=== PATIENT | female | born 1965 | race Caucasian/White ===

== ENCOUNTER 2019-04-29 17:44 | Emergency (ER) | payer OTHER ==
[~2019-04-29] VITALS: Ht 165.1 cm; Wt 111.1 kg
[2019-04-29 18:25] LABS: BASOPHILS % (AUTO) 0 % (0-10); EOSINOPHILS # (AUTO) 0.1 10^3/uL (0.0-0.3); EOSINOPHILS % (AUTO) 1 % (0-10); HEMATOCRIT 30 % (35-52); HEMOGLOBIN 9.2 G/DL (11.5-16.0); LYMPHOCYTES # (AUTO) 2.9 X 10^3 (1.0-4.0); LYMPHOCYTES % (AUTO) 25 % (12-44); MEAN CORPUSCULAR HEMOGLOBIN 23 PG (25-34); MEAN CORPUSCULAR HGB CONC 31 G/DL (32-36); MEAN CORPUSCULAR VOLUME 73 FL (80-99); MEAN PLATELET VOLUME 9.5 FL (7.4-10.4); MONOCYTES % (AUTO) 9 % (0-12); NEUTROPHILS # (AUTO) 7.2 X 10^3 (1.8-7.8); NEUTROPHILS % (AUTO) 64 % (42-75); PLATELET COUNT 599 10^3/uL (130-400); RED CELL DISTRIBUTION WIDTH 15.7 % (10.0-14.5); WHITE BLOOD COUNT 11.2 10^3/uL (4.3-11.0)
[2019-04-29] MEDS ORDERED: LISI-552 PO (18:30)
[2019-04-29] MEDS ORDERED: DICL100G18 TP (18:30)
--- NOTE | 2019-04-29 18:36 | ED General ---
General Chief Complaint: General Problems/Pain Stated Complaint: HEMOGLOBIN LOW Nursing Triage Note: PT PRESENTS TO ED WITH COMPLAINTS OF LOW HGB COUNT OF 8 WHEN SHE HAD LABS DRAWN AT HER DRS OFFICE. PT REPORTS SHE HAD HAD INTERMITTENT HEAVY PERIODS X 1 YEAR AND WAS DUE TO HAVE A HYSTERECTOMY BUT HER BLOOD SUGARS WERE RUNNING TOO HIGH. PT REPORTS FATIGUE, SOA, AND SOME INTERMITTENT CP. Nursing Sepsis Screen: No Definite Risk Source of Information: Patient Exam Limitations: No Limitations History of Present Illness Date Seen by Provider: Apr 29, 2019 Time Seen by Provider: 18:16 Initial Comments This 53 year old woman presents to the ER at the direction of her primary car clinic due to a hemoglobin of 8 on April 27, dyspnea on exertion, chest tightness on exertion, generalized weakness and fatigue, lightheadedness on exertion. These problems have been intermittently present for a few months. She believes using CPAP has improved them some. She has had ongoing problems with anemia due to vaginal bleeding. She was to have a hysterectomy but that was postponed due to high blood sugars. She reports having a negative endometrial biopsy. She has also recently had upper and lower endoscopy that were reportedly normal. She reports she was also recently suspected of having CREST syndrome. She has been diagnosed with obstructive sleep apnea, borderline pulmonary hypertension, and has history of esophageal stricture requiring dilatation. Her primary care provider is Louann Richter at [facility] in [place]. Dr. Goode is her spinning machine operator who cares for her pulmonary hypertension. She has another spinning machine operator, Dr. Ludwig, who she sees for sleep apnea. Dr. Eldridge is her rheum atologist. She denies any significant chest discomfort today. Allergies and Home Medications Allergies Coded Allergies: No Known Drug Allergies (Unverified , 04/29/19) Home Medications Lisinopril 20 Mg Tablet, 20 MG PO DAILY, (Reported) Patient Home Medication List Home Medication List Reviewed: Yes Review of Systems Review of Systems Constitutional: see HPI EENTM: no symptoms reported Respiratory: see HPI Cardiovascular: see HPI Gastrointestinal: no symptoms reported Genitourinary: no symptoms reported : No Musculoskeletal: see HPI Skin: no symptoms reported Psychiatric/Neurological: No Symptoms Reported Hematologic/Lymphatic: See HPI Immunological/Allergic: see HPI Past Qmaitvw-Fjcegj-Smullm Hx Past Med/Social Hx: Reviewed and Corrections made Patient Social History Alcohol Use: Denies Use Recreational Drug Use: No Smoking Status: Never a Smoker Recent Foreign Travel: No Contact w/Someone Who Travel: No Recent Infectious Disease Expo: No Recent Hopitalizations: No Seasonal Allergies Seasonal Allergies: No Past Medical History Surgeries: Yes (esophageal dilatation) Abdominal (upper and lower endoscopy), Gallbladder, Tonsillectomy Respiratory: Yes Sleep Apnea Cardiac: Yes (borderline pulmonary hypertension) Hypertension Neurological: No : No Last Menstrual Period: Apr 28, 2019 Reproductive Disorders: Yes (dysfunctional uterine bleeding) Genitourinary: No Gastrointestinal: Yes (esophageal strictures) Gastroesophageal Reflux Musculoskeletal: Yes (suspected CREST syndrome) Arthritis Endocrine: Yes Diabetes, Non-Insulin dep (diet controlled) HEENT: No Cancer: No Psychosocial: No Physical Exam Vital Signs Vital Signs - First Documented 04/29/19 17:58 Temp 99.5 Pulse 101 Resp 18 B/P (MAP) 139/86 (103) Pulse Ox 98 Capillary Refill : Less Than 3 Seconds Height, Weight, BMI Height: 5'5.00" Weight: 245lbs. oz. 111.141327hg; BMI Method:Stated General Appearance: No Apparent Distress, WD/WN, Obese HEENT: PERRL/EOMI, Normal ENT Inspection Neck: Normal Inspection Respiratory: Lungs Clear, Normal Breath Sounds, No Accessory Muscle Use, No Respiratory Distress Cardiovascular: No Edema, No Murmur, Normal Peripheral Pulses, Tachycardia (regular) Gastrointestinal: Normal Bowel Sounds, Non Tender, Soft Extremity: Normal Inspection, No Pedal Edema Neurologic/Psychiatric: Alert, Oriented x3, No Motor/Sensory Deficits, Normal Mood/Affect, condenser tester II-XII Norm as Tested Skin: Warm/Dry, Pallor Progress/Results/Core Measures Suspected Sepsis Recent Fever Within 48 Hours: No Infection Criteria Present: None New/Unexplained Altered Menta: No Sepsis Screen: No Definite Risk SIRS Temperature:99.5 Pulse: 101 Respiratory Rate: 18 Laboratory Tests 04/29/19 18:12: White Blood Count 11.2H Blood Pressure 139 /86 Mean: 103 Laboratory Tests 04/29/19 18:12: Creatinine 0.88, INR Comment 1.0, Platelet Count 599H, Total Bilirubin 0.4 Results/Orders Lab Results Laboratory Tests Test 04/29/19 18:12 04/29/19 18:44 Range/Units White Blood Count 11.2 H 4.3-11.0 10^3/uL Red Blood Count 4.08 L 4.35-5.85 10^6/uL Hemoglobin 9.2 L 11.5-16.0 G/DL Hematocrit 30 L 35-52 % Mean Corpuscular Volume 73 L 80-99 FL Mean Corpuscular Hemoglobin 23 L 25-34 PG Mean Corpuscular Hemoglobin Concent 31 L 32-36 G/DL Red Cell Distribution Width 15.7 H 10.0-14.5 % Platelet Count 599 H 130-400 10^3/uL Mean Platelet Volume 9.5 7.4-10.4 FL Neutrophils (%) (Auto) 64 42-75 % Lymphocytes (%) (Auto) 25 12-44 % Monocytes (%) (Auto) 9 0-12 % Eosinophils (%) (Auto) 1 0-10 % Basophils (%) (Auto) 0 0-10 % Neutrophils # (Auto) 7.2 1.8-7.8 X 10^3 Lymphocytes # (Auto) 2.9 1.0-4.0 X 10^3 Monocytes # (Auto) 1.0 0.0-1.0 X 10^3 Eosinophils # (Auto) 0.1 0.0-0.3 10^3/uL Basophils # (Auto) 0.0 0.0-0.1 10^3/uL Prothrombin Time 14.0 12.2-14.7 SEC INR Comment 1.0 0.8-1.4 Activated Partial Thromboplast Time 33 24-35 SEC D-Dimer 0.27 0.00-0.49 UG/ML Sodium Level 136 135-145 MMOL/L Potassium Level 3.6 3.6-5.0 MMOL/L Chloride Level 105 98-107 MMOL/L Carbon Dioxide Level 21 21-32 MMOL/L Anion Gap 10 5-14 MMOL/L Blood Urea Nitrogen 12 7-18 MG/DL Creatinine 0.88 0.60-1.30 MG/DL Estimat Glomerular Filtration Rate > 60 BUN/Creatinine Ratio 14 Glucose Level 111 H 70-105 MG/DL Calcium Level 9.5 8.5-10.1 MG/DL Corrected Calcium 9.4 8.5-10.1 MG/DL Magnesium Level 2.0 1.8-2.4 MG/DL Total Bilirubin 0.4 0.1-1.0 MG/DL Aspartate Amino Transf (AST/SGOT) 16 5-34 U/L Alanine Aminotransferase (ALT/SGPT) 17 0-55 U/L Alkaline Phosphatase 84 40-136 U/L Myoglobin 35.1 10.0-92.0 NG/ML Troponin I < 0.028 <0.028 NG/ML Total Protein 8.1 6.4-8.2 GM/DL Albumin 4.1 3.2-4.5 GM/DL Urine Color YELLOW Urine Clarity CLEAR Urine pH 5 5-9 Urine Specific [place] 1.025 H 1.016-1.022 Urine Protein NEGATIVE NEGATIVE Urine Glucose (UA) NEGATIVE NEGATIVE Urine Ketones NEGATIVE NEGATIVE Urine Nitrite NEGATIVE NEGATIVE Urine Bilirubin NEGATIVE NEGATIVE Urine Urobilinogen NORMAL NORMAL MG/DL Urine Leukocyte Esterase 1+ H NEGATIVE Urine RBC (Auto) 1+ H NEGATIVE Urine RBC 2-5 H /HPF Urine WBC 2-5 /HPF Urine Squamous Epithelial Cells 0-2 /HPF Urine Crystals NONE /LPF Urine Bacteria FEW H /HPF Urine Casts NONE /LPF Urine Mucus SMALL H /LPF Urine Culture Indicated YES My Orders Orders - LAVELLE KITCHEN MD Cbc With Automated Diff (04/29/19 18:14) Magnesium (04/29/19 18:14) Ekg Tracing (04/29/19 18:14) Cardiac Profile 1 (04/29/19 18:14) Comprehensive Metabolic Panel (04/29/19 18:14) Myoglobin Serum (04/29/19 18:14) Protime With Inr (04/29/19 18:14) Partial Thromboplastin Time (04/29/19 18:14) O2 (04/29/19 18:14) Monitor-Rhythm Ecg Trace Only (04/29/19 18:14) Ed Iv/Invasive Line Start (04/29/19 18:14) Chest Pa/Lat (2 View) (04/29/19 18:26) Ua Culture If Indicated (04/29/19 18:37) Fibrin Degradation Products (04/29/19 18:54) Urine Culture (04/29/19 18:44) Ns Iv 1000 Ml (Sodium Chloride 0.9%) (04/29/19 19:29) Medications Given in ED Current Medications Medications Dose Ordered Sig/Shabbir Route Start Time Stop Time Status Last Admin Dose Admin Sodium Chloride 1,000 ml @ 0 mls/hr Q0M ONCE IV 04/29/19 19:29 04/29/19 19:31 DC 04/29/19 19:40 0 MLS/HR Vital Signs/I&O 04/29/19 04/29/19 17:58 20:39 Temp 99.5 Pulse 101 87 Resp 18 20 B/P (MAP) 139/86 (103) 154/87 (109) Pulse Ox 98 99 Capillary Refill : Less Than 3 Seconds Blood Pressure Mean: 103 Progress Note : Time: 19:33 Progress Note Lab workup demonstrated pulmonary nodules on the chest x-ray which patient was aware of. We are sending her out with a CD of her x-rays to take to her spinning machine operator for comparison. Patient feels like she has not been drinking well enough lately. This may explain her mild tachycardia. She requests a liter of IV fluid before dismissal. Hemoglobin was 9.2 today and stable from her reported 8 from the clinic on Saturday. Patient is not having active chest pain. I advised her to seek referral to a sheet metal worker as soon as possible. She would like to do this through [employer] as a referral from her spinning machine operator. Have encouraged her to follow up with her primary care provider to review findings from today's workup. ECG Initial ECG Impression Date: Apr 29, 2019 Initial ECG Impression Time: 18:24 Initial ECG Rate: 99 Initial ECG Rhythm: S.Tach Initial ECG Impression: Normal Comment Borderline sinus tachycardia with no ST elevation or depression. No abnormal i ntervals or axis deviation. Diagnostic Imaging Diagonstic Imaging: Xray Plain Films/CT/US/NM/MRI: chest Comments Chest x-ray viewed by me and report reviewed. See report below: NAME: JAMEEL FERNÁNDEZ [facility] REC#: [id number] PT STATUS: REG ER : 1965 PHYSICIAN: LAVELLE KITCHEN MD ADMIT DATE: 04/29/19/ER Draft Date of Exam:04/29/19 CHEST PA/LAT (2 VIEW) EXAM: CHEST PA/LAT (2 VIEW) INDICATION: Chest pain. Weakness. COMPARISON: None. FINDINGS: Indeterminate subcentimeter pulmonary nodule in the right lung base laterally. Calcified granuloma in the left lung. No pleural effusion or pneumothorax. Normal heart size and central pulmonary vascularity. Cholecystectomy clips. IMPRESSION: Indeterminate subcentimeter pulmonary nodule in the right lung laterally. Comparison with prior outside imaging would be helpful for further evaluation. Alternatively, a nonemergent chest CT without contrast could be performed. Dictated on workstation # [id number] Dict: 04/29/19 1834 Trans: 04/29/19 1839 RYLAN [phone] Interpreted by: SALMA CARRASCO MD Departure Impression Primary Impression: Dyspnea on exertion Additional Impressions: Chest pain on exertion Anemia Qualified Codes: D64.9 - Anemia, unspecified Pulmonary nodules Disposition: HOME, SELF-CARE Condition: Improved Departure-Patient Inst. Decision time for Depature: 19:31 Referrals: NO,LOCAL PHYSICIAN (PCP) Primary Care Physician SONYA RICHTER (Family) Primary Care Physician Add. Discharge Instructions: Follow-up with your spinning machine operator as soon as possible. Please call their office in the morning and ask for referral to a sheet metal worker for further evaluation of your shortness of breath and discomfort on exertion. When you follow-up with your spinning machine operator, please take the CD of your chest x-ray for comparison to the priors. Drink plenty of clear liquids and avoid activities that cause significant shortness of breath or discomfort. Return to emergency room if you have worsening symptoms. Please follow-up with your primary care provider soon as possible to review labs and other findings from this ER visit. All discharge instructions reviewed with patient and/or family. Voiced understanding. Copy Copies To 1: TROY WALKER JOSHUA T MD Apr 29, 2019 18:36
--- NOTE | 2019-04-29 18:40 | Diagnostic Imaging Report ---
EXAM: CHEST PA/LAT (2 VIEW) INDICATION: Chest pain. Weakness. COMPARISON: None. FINDINGS: Indeterminate subcentimeter pulmonary nodule in the right lung base laterally. Calcified granuloma in the left lung. No pleural effusion or pneumothorax. Normal heart size and central pulmonary vascularity. Cholecystectomy clips. IMPRESSION: Indeterminate subcentimeter pulmonary nodule in the right lung laterally. Comparison with prior outside imaging would be helpful to document stability. If this is unavailable, recommend nonemergent noncontrast chest CT. Dictated by: Dictated on workstation # [id number]
[2019-04-29 18:46] LABS: ALANINE AMINOTRANSFERASE 17 U/L (0-55); ALBUMIN 4.1 GM/DL (3.2-4.5); ALKALINE PHOSPHATASE 84 U/L (40-136); BILIRUBIN,TOTAL 0.4 MG/DL (0.1-1.0); BUN/CREATININE RATIO 14; CALCIUM 9.5 MG/DL (8.5-10.1); CARBON DIOXIDE 21 MMOL/L (21-32); CHLORIDE 105 MMOL/L (98-107); CREATININE SERUM 0.88 MG/DL (0.60-1.30); GFR ESTIMATED > 60; GLUCOSE 111 MG/DL (70-105); POTASSIUM 3.6 MMOL/L (3.6-5.0); SODIUM 136 MMOL/L (135-145); TOTAL PROTEIN 8.1 GM/DL (6.4-8.2)
[2019-04-29 19:03] LABS: BILIRUBIN,URINE NEGATIVE (NEGATIVE); CLARITY,URINE CLEAR; COLOR,URINE YELLOW; GLUCOSE, URINE (UA) NEGATIVE (NEGATIVE); KETONES,URINE NEGATIVE (NEGATIVE); LEUKOCYTE ESTERASE ,URINE 1+ (NEGATIVE); NITRITE,URINE NEGATIVE (NEGATIVE); PH,URINE 5 (5-9); PROTEIN,URINE NEGATIVE (NEGATIVE); UROBILINOGEN,URINE NORMAL (NORMAL)
--- OUTSIDE RECORDS SUMMARY | 2019-04-29 19:13 | XMS REPORT ---
Author Author SONYA KRISHNA Organization [facility] Address [address] [place] [address] Care Team Providers Care Scraper Operator Name Role Phone SONYA KRISHNA Unavailable PROBLEMS Type Condition ICD9-CM Code [id number] Code Onset Dates Condition Status SNOMED Code Problem Acute non-recurrent pansinusitis J01.40 Active 7707015 Problem Elevated blood pressure reading R03.0 Active 84629667 Problem Positive JANIYA (antinuclear antibody) R76.8 Active 624012263 Problem Hypertension, essential I10 Active 25252165 Problem Hyperglycemia R73.9 Active 57528908 Problem Low hemoglobin D64.9 Active 839389792 Problem Right hip pain M25.551 Active 228238730938186 Problem Iron deficiency anemia, unspecified iron deficiency anemia type D50.9 Active 28615620 ALLERGIES No Information ENCOUNTERS Encounter Location Date Diagnosis [facility] [address] [id number] [place] [id number] May, [facility] [address] [id number], [place] [id number] May, Positive JANIYA (antinuclear antibody) R76.8 [facility] [address] [id number], [place] [id number] May, Iron deficiency anemia, unspecified iron deficiency anemia type D50.9 ; Right hip pain M25.551 and Hypertension, essential I10 [facility] [address] [id number] [place] [id number] Apr, Hematest positive stools R19.5 [facility] [address] [id number] [place] [id number] Apr, Hyperglycemia R73.9 [facility] [address] [id number][place] [id number] Apr, [facility] [id number][place] [id number] Apr, Hyperglycemia R73.[address] [id number], [place] [id number] Apr, Hyperglycemia R73.9 and Low hemoglobin D64.[address] [id number], [place] [id number] Apr, Elevated blood pressure reading R03.0 and Seasonal allergic rhinitis, unspecified trigger J30.[address] [id number], [place] [id number] March, Acute non-recurrent pansinusitis J01.40 ; Elevated blood pressure reading R03.0 and BMI 40.0-44.9, adult Z68.[address] [id number], [place] [id number] Jan, Allergic conjunctivitis of both eyes H10.13 [facility] [id number] [place] [id number] 03 Mar, 2017 Encounter for dental examination Z01.20 [facility] [id number] [place] [phone] 02 Dec, 2016 Dysuria R30.0 and Acute cystitis with hematuria N30.01 [facility] [id number] [place] [phone] Aug, Dysuria R30.0 and Acute cystitis with hematuria N30.01 IMMUNIZATIONS No Known Immunizations SOCIAL HISTORY Never Assessed REASON FOR VISIT lab [facility] PLAN OF CARE VITAL SIGNS MEDICATIONS Unknown Medications RESULTS Name Result Date Reference Range HEMOCCULT/FOBT (IN HOUSE) 2018-04-22 RESULTS POSITIVE Control POSITIVE Lot # [id number] Exp date 05/23 HEMOCCULT (IN HOUSE)-Additional* 2018-04-22 RESULTS POSITIVE Control POSITIVE Lot # [id number] Exp Date 05/23 PROCEDURES Procedure Date Ordered Result Body Site TEST FOR BLOOD, FECES April 22, 2018 INSTRUCTIONS MEDICATIONS ADMINISTERED No Known Medications MEDICAL (GENERAL) HISTORY Type Description Date Medical History Low iron Medical History Pre Diabetic Surgical History cholecystectomy Surgical History tonsillectomy and adenoidectomy Hospitalization History Sx
--- OUTSIDE RECORDS SUMMARY | 2019-04-29 19:13 | XMS REPORT ---
Author Author [facility]ISHNA [facility] Address [address] [place] [address] Care Team Providers Care Order Builder Name Role Phone SONYA KRISHNA Unavailable PROBLEMS Type Condition ICD9-CM Code [id number] Code Onset Dates Condition Status SNOMED Code Problem Acute non-recurrent pansinusitis J01.40 Active 0457906 Problem Elevated blood pressure reading R03.0 Active 74644672 Problem Positive JANIYA (antinuclear antibody) R76.8 Active 597585316 Problem Hypertension, essential I10 Active 28472305 Problem Hyperglycemia R73.9 Active 94492140 Problem Low hemoglobin D64.9 Active 524362894 Problem Right hip pain M25.551 Active 678808422194513 Problem Iron deficiency anemia, unspecified iron deficiency anemia type D50.9 Active 08992759 ALLERGIES No Information ENCOUNTERS Encounter Location Date Diagnosis [facility] [employer] [address] [id number] [place] [id number] Oct, [facility] [address] [id number], [place] [id number] May, [facility] [address] [id number], [place] [id number] May, Positive JANIYA (antinuclear antibody) R76.8 [facility] [address] [id number], [place] [id number] May, Iron deficiency anemia, unspecified iron deficiency anemia type D50.9 ; Right hip pain M25.551 and Hypertension, essential I10 [facility] [address] [id number] [place] [id number] Apr, Hematest positive stools R19.5 [facility] [id number], [place] [id number] Apr, Hyperglycemia R73.9 [facility] [id number], [place] [id number] 15 Apr, 2018 [facility] [id number], [place] [id number] Apr, Hyperglycemia R73.9 [facility] [address] [id number], [place] [id number] 11 Apr, 2018 Hyperglycemia R73.9 and Low hemoglobin D64.[address] [id number], [place] [id number] Apr, Elevated blood pressure reading R03.0 and Seasonal allergic rhinitis, unspecified trigger J30.[address] [id number], [place] [id number] March, Acute non-recurrent pansinusitis J01.40 ; Elevated blood pressure reading R03.0 and BMI 40.0-44.9, adult Z68.41 [facility] Armstrong[address] [place] [address] AV [id number], [place] [id number] Jan, Allergic conjunctivitis of both eyes H10.13 [facility] [address] [place] [id number] March, Encounter for dental examination Z01.20 [facility] [address] [place] [phone] Dec, Dysuria R30.0 and Acute cystitis with hematuria N30.01 [facility] [address] [place] [phone] Aug, Dysuria R30.0 and Acute cystitis with hematuria N30.01 IMMUNIZATIONS No Known Immunizations SOCIAL HISTORY Never Assessed REASON FOR VISIT refill lisinopril PLAN OF CARE VITAL SIGNS MEDICATIONS Medication Instructions Dosage Frequency Start Date End Date Duration Status Lisinopril 10 mg Orally Once a day 1 tablet 24h 30 Active RESULTS No Results PROCEDURES No Known procedures INSTRUCTIONS MEDICATIONS ADMINISTERED No Known Medications MEDICAL (GENERAL) HISTORY Type Description Date Medical History Low iron Medical History Pre Diabetic Medical History CREST Syndrome, limited scleroderma Surgical History cholecystectomy Surgical History tonsillectomy and adenoidectomy Hospitalization History Sx
--- OUTSIDE RECORDS SUMMARY | 2019-04-29 19:13 | XMS REPORT ---
Author Author SONYA KRISHNA [facility] Address [address] [place] [address] Care Team Providers Care Recovery Agent Name Role Phone SONYA KRISHNA Unavailable PROBLEMS Type Condition ICD9-CM Code [id number] Code Onset Dates Condition Status SNOMED Code Problem Acute non-recurrent pansinusitis J01.40 Active 6173092 Problem Elevated blood pressure reading R03.0 Active 31786629 Problem Positive JANIYA (antinuclear antibody) R76.8 Active 229107134 Problem Hypertension, essential I10 Active 40209232 Problem Hyperglycemia R73.9 Active 98207338 Problem Low hemoglobin D64.9 Active 641246074 Problem Right hip pain M25.551 Active 908255694858753 Problem Iron deficiency anemia, unspecified iron deficiency anemia type D50.9 Active 12649170 ALLERGIES No Information ENCOUNTERS Encounter Location Date Diagnosis [facility] [address] [id number] [place] [id number] May, [facility] [address] [id number], [place] [id number] May, Positive JANIYA (antinuclear antibody) R76.8 [facility] [address] [id number], [place] [id number] May, Iron deficiency anemia, unspecified iron deficiency anemia type D50.9 ; Right hip pain M25.551 and Hypertension, essential I10 [facility] [address] [id number] [place] [id number] Apr, Hematest positive stools R19.5 [facility] [address] [id number] [place] [id number] Apr, Hyperglycemia R73.9 [facility] [address] [id number], [place] [id number] Apr, [facility] [id number], [place] [id number] Apr, Hyperglycemia R73.[address] [id number], [place] [id number] Apr, Hyperglycemia R73.9 and Low hemoglobin D64.[address] [id number], [place] [id number] Apr, Elevated blood pressure reading R03.0 and Seasonal allergic rhinitis, unspecified trigger J30.[address] [id number], [place] [id number] March, Acute non-recurrent pansinusitis J01.40 ; Elevated blood pressure reading R03.0 and BMI 40.0-44.9, adult Z68.[address] [id number], [place] [id number] Jan, Allergic conjunctivitis of both eyes H10.13 [facility] [address] [place] [id number] March, Encounter for dental examination Z01.20 [facility] [id number] [place] [phone] 02 Dec, 2016 Dysuria R30.0 and Acute cystitis with hematuria N30.01 [facility] [id number] [place] [phone] Aug, Dysuria R30.0 and Acute cystitis with hematuria N30.01 IMMUNIZATIONS No Known Immunizations SOCIAL HISTORY Never Assessed REASON FOR VISIT PLAN OF CARE VITAL SIGNS MEDICATIONS Unknown Medications RESULTS No Results PROCEDURES No Known procedures INSTRUCTIONS MEDICATIONS ADMINISTERED No Known Medications MEDICAL (GENERAL) HISTORY Type Description Date Medical History Low iron Medical History Pre Diabetic Surgical History cholecystectomy Surgical History tonsillectomy and adenoidectomy Hospitalization History Sx
--- OUTSIDE RECORDS SUMMARY | 2019-04-29 19:13 | XMS REPORT ---
Author Author SONYA KRISHNA Organization [facility] Address [address] [place] [address] Care Team Providers Care Lift Operator Name Role Phone SONYA KRISHNA Unavailable PROBLEMS Type Condition ICD9-CM Code [id number] Code Onset Dates Condition Status SNOMED Code Problem Acute non-recurrent pansinusitis J01.40 Active 7142727 Problem Elevated blood pressure reading R03.0 Active 13361771 Problem Positive JANIYA (antinuclear antibody) R76.8 Active 801126301 Problem Hypertension, essential I10 Active 20129795 Problem Hyperglycemia R73.9 Active 75491047 Problem Low hemoglobin D64.9 Active 774430724 Problem Right hip pain M25.551 Active 022124483056209 Problem Iron deficiency anemia, unspecified iron deficiency anemia type D50.9 Active 91929336 ALLERGIES No Information ENCOUNTERS Encounter Location Date Diagnosis [facility] [address] [id number] [place] [id number] May, [facility] [address] [id number] [id number] May, Positive JANIYA (antinuclear antibody) R76.8 [facility] [address] [id number], [place] [id number] May, Iron deficiency anemia, unspecified iron deficiency anemia type D50.9 ; Right hip pain M25.551 and Hypertension, essential I10 [facility] [address] [id number] [place] [phone] Apr, Hematest positive stools R19.5 [facility] [address] [id number] [place] [id number] Apr, Hyperglycemia R73.9 [facility] [address] [id number], [place] [id number] Apr, [facility] [id number], [place] [id number] Apr, Hyperglycemia R73.[address] [id number], [place] [id number] Apr, Hyperglycemia R73.9 and Low hemoglobin D64.[address] [id number], [place] [id number] Apr, Elevated blood pressure reading R03.0 and Seasonal allergic rhinitis, unspecified trigger J30.[address] [id number], [place] [id number] March, Acute non-recurrent pansinusitis J01.40 ; Elevated blood pressure reading R03.0 and BMI 40.0-44.9, adult Z68.[address] [id number], [place] [id number] Jan, Allergic conjunctivitis of both eyes H10.13 [facility] [id number] [place] [id number] March, Encounter for dental examination Z01.20 [facility] [id number] [place] [address] 02 Dec, 2016 Dysuria R30.0 and Acute cystitis with hematuria N30.01 [facility] [id number] [place] [phone] Aug, Dysuria R30.0 and Acute cystitis with hematuria N30.01 IMMUNIZATIONS No Known Immunizations SOCIAL HISTORY Never Assessed REASON FOR VISIT JANIYA Titer PLAN OF CARE VITAL SIGNS MEDICATIONS Unknown Medications RESULTS No Results PROCEDURES No Known procedures INSTRUCTIONS MEDICATIONS ADMINISTERED No Known Medications MEDICAL (GENERAL) HISTORY Type Description Date Medical History Low iron Medical History Pre Diabetic Surgical History cholecystectomy Surgical History tonsillectomy and adenoidectomy Hospitalization History Sx
--- OUTSIDE RECORDS SUMMARY | 2019-04-29 19:13 | XMS REPORT ---
Author Author SONYA KRISHNA Organization [facility] Address [address] [place] [address] Care Team Providers Care Fpga Design Engineer Name Role Phone SONYA KRISHNA Unavailable PROBLEMS Type Condition ICD9-CM Code GAG18-HC Code Onset Dates Condition Status SNOMED Code Problem Acute non-recurrent pansinusitis J01.40 Active 6609610 Problem Elevated blood pressure reading R03.0 Active 66157085 Problem Positive JANIYA (antinuclear antibody) R76.8 Active 923025349 Problem Hypertension, essential I10 Active 26166301 Problem Hyperglycemia R73.9 Active 10379122 Problem Low hemoglobin D64.9 Active 590907604 Problem Right hip pain M25.551 Active 121950503985438 Problem Iron deficiency anemia, unspecified iron deficiency anemia type D50.9 Active 43791380 ALLERGIES No Information ENCOUNTERS Encounter Location Date Diagnosis [facility] [address] [id number] [place], [place] [id number] May, [facility] [address] [id number] [place] [id number] May, Positive JANIYA (antinuclear antibody) R76.8 [facility] [address] [id number] [place] [id number] May, Iron deficiency anemia, unspecified iron deficiency anemia type D50.9 ; Right hip pain M25.551 and Hypertension, essential I10 [facility] [address] [id number] [place] [id number] Apr, Hematest positive stools R19.5 [facility] [address] [id number] [place] [id number] Apr, Hyperglycemia R73.9 [facility] [address] [id number] [place] [id number] Apr, [facility] [id number] [place] [address] Apr, Hyperglycemia R73.[address] [id number] [place] [id number] Apr, Hyperglycemia R73.9 and Low hemoglobin D64.[address] [id number] [place] [id number] Apr, Elevated blood pressure reading R03.0 and Seasonal allergic rhinitis, unspecified trigger J30.[address] [id number] [place] [id number] March, Acute non-recurrent pansinusitis J01.40 ; Elevated blood pressure reading R03.0 and BMI 40.0-44.9, adult Z68.[address] [id number] [place] [id number] Jan, Allergic conjunctivitis of both eyes H10.13 [facility] [address] [place] [id number] March, Encounter for dental examination Z01.20 [facility] [id number] [place] [phone] 02 Dec, 2016 Dysuria R30.0 and Acute cystitis with hematuria N30.01 [facility] [address] [place] [phone] Aug, Dysuria R30.0 and Acute cystitis with hematuria N30.01 IMMUNIZATIONS No Known Immunizations SOCIAL HISTORY Never Assessed REASON FOR VISIT Test results PLAN OF CARE VITAL SIGNS MEDICATIONS Unknown Medications RESULTS No Results PROCEDURES No Known procedures INSTRUCTIONS MEDICATIONS ADMINISTERED No Known Medications MEDICAL (GENERAL) HISTORY Type Description Date Medical History Low iron Medical History Pre Diabetic Surgical History cholecystectomy Surgical History tonsillectomy and adenoidectomy Hospitalization History Sx
--- OUTSIDE RECORDS SUMMARY | 2019-04-29 19:13 | XMS REPORT ---
Author Author SONYA KRISHNA Organization [facility] Address [address] [place] [address] Care Team Providers Care Applications Support Lead Name Role Phone SONYA KRISHNA Unavailable PROBLEMS Type Condition ICD9-CM Code TDW55-ZV Code Onset Dates Condition Status SNOMED Code Problem Acute non-recurrent pansinusitis J01.40 Active 9091146 Problem Elevated blood pressure reading R03.0 Active 21839173 Problem Positive JANIYA (antinuclear antibody) R76.8 Active 578824014 Problem Hypertension, essential I10 Active 76582825 Problem Hyperglycemia R73.9 Active 22156932 Problem Low hemoglobin D64.9 Active 745211587 Problem Right hip pain M25.551 Active 299688464298021 Problem Iron deficiency anemia, unspecified iron deficiency anemia type D50.9 Active 08530183 ALLERGIES No Known Allergies ENCOUNTERS Encounter Location Date Diagnosis [facility] [address] [id number] [place] [id number] May, [facility] [address] [id number], [place] [id number] May, Positive JANIYA (antinuclear antibody) R76.8 [facility] [address] [id number], [place] [address] May, Iron deficiency anemia, unspecified iron deficiency anemia type D50.9 ; Right hip pain M25.551 and Hypertension, essential I10 [facility] [address] [id number] [place] [id number] Apr, Hematest positive stools R19.5 [facility] [address] [id number] [place] [id number] Apr, Hyperglycemia R73.9 [facility] [address] [id number], [place] [id number] Apr, [facility] [address] [id number], [place] [id number] Apr, Hyperglycemia R73.[address] [id number], [place] [id number] Apr, Hyperglycemia R73.9 and Low hemoglobin D64.[address] [id number], [place] [id number] Apr, Elevated blood pressure reading R03.0 and Seasonal allergic rhinitis, unspecified trigger J30.[address] [id number], [place] [id number] March, Acute non-recurrent pansinusitis J01.40 ; Elevated blood pressure reading R03.0 and BMI 40.0-44.9, adult Z68.[address] [id number], [place] [id number] Jan, Allergic conjunctivitis of both eyes H10.13 [facility] [address] [place] [id number] March, Encounter for dental examination Z01.20 [facility] [id number] [place] [phone] 02 Dec, 2016 Dysuria R30.0 and Acute cystitis with hematuria N30.01 [facility] [id number] [place] [phone] Aug, Dysuria R30.0 and Acute cystitis with hematuria N30.01 IMMUNIZATIONS No Known Immunizations SOCIAL HISTORY Never Assessed REASON FOR VISIT follow up on lab. Jerry ansari, Pt states she is having pain in R hip. PLAN OF CARE Activity Details Follow Up 6 Weeks Reason:b/p VITAL SIGNS Height 66.0 in 2018-05-06 Weight 247.6 lbs 2018-05-06 Temperature 97.7 degrees Fahrenheit 2018-05-06 Heart Rate 84 bpm 2018-05-06 Respiratory Rate 18 2018-05-06 Oximetry 94 % 2018-05-06 BMI 39.96 kg/m2 2018-05-06 Blood pressure systolic 155 mmHg 2018-05-06 Blood pressure diastolic 88 mmHg 2018-05-06 MEDICATIONS Medication Instructions Dosage Frequency Start Date End Date Duration Status Metformin & Diet Manage Prod Not-Taking Cetirizine HCl 10 mg Orally Once a day 1 tablet 24h Apr, Oct, 90 days Not-Taking Ferrous Sulfate 325 (65 Fe) MG Orally twice a day 1 tablet 12h 18 Apr, 2018 30 day(s) Active Vitamin B-12 5000 MCG Not-Taking Lisinopril 10 mg Orally Once a day 1 tablet 24h May, 30 day(s) Active RESULTS No Results PROCEDURES Procedure Date Ordered Result Body Site BLOOD SMEAR INTERPRETATION May 06, 2018 ANTINUCLEAR ANTIBODIES May 06, 2018 VENIPUNCT, ROUTINE* May 06, 2018 RBC SED RATE, AUTOMATED May 06, 2018 C-REACTIVE PROTEIN May 06, 2018 RHEUMATOID FACTOR, QUANT May 06, 2018 INSTRUCTIONS MEDICATIONS ADMINISTERED No Known Medications MEDICAL (GENERAL) HISTORY Type Description Date Medical History Low iron Medical History Pre Diabetic Surgical History cholecystectomy Surgical History tonsillectomy and adenoidectomy Hospitalization History Sx
--- OUTSIDE RECORDS SUMMARY | 2019-04-29 19:13 | XMS REPORT ---
Author Author SONYA KRISHNA [facility] Address [address] [place] [address] Care Team Providers Care Salad Bar Clerk Name Role Phone SONYA KRISHNA Unavailable PROBLEMS Type Condition ICD9-CM Code JRF30-AX Code Onset Dates Condition Status SNOMED Code Problem Elevated blood pressure reading R03.0 Active 67760381 Problem Acute non-recurrent pansinusitis J01.40 Active 2299202 Problem Low hemoglobin D64.9 Active 980914044 Problem Positive JANIYA (antinuclear antibody) R76.8 Active 743339529 Problem Metabolic syndrome E88.81 Active 182140854 Problem Hyperglycemia R73.9 Active 62530655 Problem Hypertension, essential I10 Active 25664124 Problem Iron deficiency anemia, unspecified iron deficiency anemia type D50.9 Active 11164103 Problem Right hip pain M25.551 Active 529003399549980 ALLERGIES No Known Allergies ENCOUNTERS Encounter Location Date Diagnosis [facility] [id number] [place]INT[place] [phone] Jan, Metabolic syndrome E88.81 and Hypertension, essential I10 [facility] [address] [address] [id number] [place]INT[place] [phone] Nov, Hypertension, essential I10 ; Hyperglycemia R73.9 ; Iron deficiency anemia, unspecified iron deficiency anemia type D50.9 and Breast cancer screening Z12.39 [facility] [address] [address] [id number] [place] [phone] Oct, [facility] [address] [address] [id number] POINT[place] [id number] May, [facility] [id number] POINT, [place] [id number] May, Positive JANIYA (antinuclear antibody) R76.8 [facility] [address] [id number] POINT, [place] [id number] May, Iron deficiency anemia, unspecified iron deficiency anemia type D50.9 ; Right hip pain M25.551 and Hypertension, essential I10 [facility] [address] [facility] [address] [id number] POINT, [place] [id number] Apr, Hematest positive stools R19.[address] [id number] POINT[place] [id number] Apr, Hyperglycemia R73.9 [facility] [id number] [place] [id number] Apr, [facility] [id number] [place] [id number] Apr, Hyperglycemia R73.[address] [id number] [place] [id number] Apr, Hyperglycemia R73.9 and Low hemoglobin D64.[address] [id number] POINT, [place] [id number] Apr, Elevated blood pressure reading R03.0 and Seasonal allergic rhinitis, unspecified trigger J30.[address] AV[id number] [place] [id number] March, Acute non-recurrent pansinusitis J01.40 ; Elevated blood pressure reading R03.0 and BMI 40.0-44.9, adult Z68.41 [facility] [address] [place] [address] AVE [id number] POINT[place] [id number] Jan, Allergic conjunctivitis of both eyes H10.13 [facility] [address] [place] [id number] March, Encounter for dental examination Z01.20 [facility] [id number] [place] [phone] 02 Dec, 2016 Dysuria R30.0 and Acute cystitis with hematuria N30.01 [facility] [id number] [place] [phone] Aug, Dysuria R30.0 and Acute cystitis with hematuria N30.01 IMMUNIZATIONS No Known Immunizations SOCIAL HISTORY Never Assessed REASON FOR VISIT Hypertension bferrisma PLAN OF CARE Activity Details Follow Up 3 Months Reason:weight and b/p eval VITAL SIGNS Height 66.0 in 2019-01-08 Weight 254.0 lbs 2019-01-08 Temperature 97.8 degrees Fahrenheit 2019-01-08 Heart Rate 74 bpm 2019-01-08 Respiratory Rate 18 2019-01-08 Oximetry 98 % 2019-01-08 BMI 40.99 kg/m2 2019-01-08 Blood pressure systolic 120 mmHg 2019-01-08 Blood pressure diastolic 78 mmHg 2019-01-08 MEDICATIONS Medication Instructions Dosage Frequency Start Date End Date Duration Status Lisinopril 20 mg Orally Once a day 1 tablet 24h May, 90 days Active MetFORMIN HCl ER 500 mg Orally Once a day 1 tablet with evening meal 24h Jan, 90 days Active Prilosec OTC 20 MG Orally Once a day 1 tablet 24h 30 day(s) Active Voltaren 1 % as directed Active RESULTS No Results PROCEDURES No Known procedures INSTRUCTIONS MEDICATIONS ADMINISTERED No Known Medications MEDICAL (GENERAL) HISTORY Type Description Date Medical History Low iron Medical History Pre Diabetic Medical History CREST Syndrome, limited scleroderma Medical History Cpap-Bipap Medical History HTN Surgical History cholecystectomy Surgical History tonsillectomy and adenoidectomy Surgical History colonoscopy-normal colon with minor hemorrhoids 05/2018 Surgical History EGD 09/05/18 Hospitalization History Sx
--- OUTSIDE RECORDS SUMMARY | 2019-04-29 19:14 | XMS REPORT ---
Author Author SONYA KRISHNA [facility] Address [address] [place] [address] Care Team Providers Care Director Global Intelligence Name Role Phone SONYA KRISHNA Unavailable PROBLEMS Type Condition ICD9-CM Code QIO24-JQ Code Onset Dates Condition Status SNOMED Code Problem Acute non-recurrent pansinusitis J01.40 Active 6859925 Problem Elevated blood pressure reading R03.0 Active 26327044 Problem Positive JANIYA (antinuclear antibody) R76.8 Active 872678475 Problem Hypertension, essential I10 Active 92223128 Problem Hyperglycemia R73.9 Active 95961876 Problem Low hemoglobin D64.9 Active 372719663 Problem Right hip pain M25.551 Active 549267723247118 Problem Iron deficiency anemia, unspecified iron deficiency anemia type D50.9 Active 68834308 ALLERGIES No Information ENCOUNTERS Encounter Location Date Diagnosis [facility] [address] [id number] [place] [phone] May, [facility] [address] [id number], [place] [id number] May, Positive JANIYA (antinuclear antibody) R76.8 [facility] [address] [id number], [place] [id number] May, Iron deficiency anemia, unspecified iron deficiency anemia type D50.9 ; Right hip pain M25.551 and Hypertension, essential I10 [facility] [address] [id number] [place] [id number] Apr, Hematest positive stools R19.5 [facility] [address] [id number] [place] [id number] Apr, Hyperglycemia R73.9 [facility] [address] [id number], [place] [id number] Apr, [facility] [id number], [place] [address] Apr, Hyperglycemia R73.[address] [id number], [place] [address] Apr, Hyperglycemia R73.9 and Low hemoglobin D64.[address] [id number], [place] [id number] Apr, Elevated blood pressure reading R03.0 and Seasonal allergic rhinitis, unspecified trigger J30.[address] [id number], [place] [id number] March, Acute non-recurrent pansinusitis J01.40 ; Elevated blood pressure reading R03.0 and BMI 40.0-44.9, adult Z68.[address] [id number], [place] [id number] Jan, Allergic conjunctivitis of both eyes H10.13 [facility] [id number] [place] [id number] March, Encounter for dental examination Z01.20 [facility] [address] [phone] 02 Dec, 2016 Dysuria R30.0 and Acute cystitis with hematuria N30.01 [facility] [id number] [place] [phone] Aug, Dysuria R30.0 and Acute cystitis with hematuria N30.01 IMMUNIZATIONS No Known Immunizations SOCIAL HISTORY Never Assessed REASON FOR VISIT Lab (walk-in) bferrisma PLAN OF CARE VITAL SIGNS MEDICATIONS Unknown Medications RESULTS No Results PROCEDURES Procedure Date Ordered Result Body Site ROUTINE VENIPUNCTURE 2018-04-16 N/A IRON BINDING TEST April 16, 2018 Hemoglobin Test Send Out 0 dollar April 16, 2018 VITAMIN B-12 April 16, 2018 ASSAY OF FERRITIN April 16, 2018 ASSAY OF IRON April 16, 2018 BLOOD FOLIC ACID SERUM April 16, 2018 COMPLETE CBC W/AUTO DIFF WBC April 16, 2018 INSTRUCTIONS MEDICATIONS ADMINISTERED No Known Medications MEDICAL (GENERAL) HISTORY Type Description Date Medical History Low iron Medical History Pre Diabetic Surgical History cholecystectomy Surgical History tonsillectomy and adenoidectomy Hospitalization History Sx
--- OUTSIDE RECORDS SUMMARY | 2019-04-29 19:14 | XMS REPORT ---
Author Author SONYA KRISHNA Organization [facility] Address [address] [place] [address] Care Team Providers Care Home Service Consultant Name Role Phone SONYA KRISHNA Unavailable PROBLEMS Type Condition ICD9-CM Code IAI80-TY Code Onset Dates Condition Status SNOMED Code Problem Acute non-recurrent pansinusitis J01.40 Active 5805589 Problem Elevated blood pressure reading R03.0 Active 30665498 Problem Positive JANIYA (antinuclear antibody) R76.8 Active 717927604 Problem Hypertension, essential I10 Active 23701043 Problem Hyperglycemia R73.9 Active 81316911 Problem Low hemoglobin D64.9 Active 967185136 Problem Right hip pain M25.551 Active 600848256496560 Problem Iron deficiency anemia, unspecified iron deficiency anemia type D50.9 Active 23802417 ALLERGIES No Known Allergies ENCOUNTERS Encounter Location Date Diagnosis [facility] [address] [id number] [place] [phone] May, [facility] [address] [id number], [place] [id number] May, Positive JANIYA (antinuclear antibody) R76.8 [facility] [address] [id number], [place] [id number] May, Iron deficiency anemia, unspecified iron deficiency anemia type D50.9 ; Right hip pain M25.551 and Hypertension, essential I10 [facility] [address] [id number], [place] [id number] Apr, Hematest positive stools R19.5 [facility] [address] [id number] [place] [id number] Apr, Hyperglycemia R73.9 [facility] [address] [id number], [place] [id number] Apr, [facility] [address] [facility] [address] [id number], [place] [id number] 13 Apr, 2018 Hyperglycemia R73.[address] [id number], [place] [id number] 11 Apr, 2018 Hyperglycemia R73.9 and Low hemoglobin D64.[address] [id number], [place] [address] Apr, Elevated blood pressure reading R03.0 and Seasonal allergic rhinitis, unspecified trigger J30.[address] [id number], [place] [id number] March, Acute non-recurrent pansinusitis J01.40 ; Elevated blood pressure reading R03.0 and BMI 40.0-44.9, adult Z68.[address] [id number], [place] [id number] Jan, Allergic conjunctivitis of both eyes H10.13 [facility] [address] [place] [id number] March, Encounter for dental examination Z01.20 [facility] [id number] [place] [phone] 02 Dec, 2016 Dysuria R30.0 and Acute cystitis with hematuria N30.01 [facility] [id number] [place] [phone] Aug, Dysuria R30.0 and Acute cystitis with hematuria N30.01 IMMUNIZATIONS No Known Immunizations SOCIAL HISTORY Never Assessed REASON FOR VISIT sinus infection Started a week ago. bferrisma PLAN OF CARE Activity Details Follow Up 4 Weeks Reason:est care VITAL SIGNS Height 65 in 2018-03-26 Weight 242.2 lbs 2018-03-26 Temperature 97.4 degrees Fahrenheit 2018-03-26 Heart Rate 78 bpm 2018-03-26 Respiratory Rate 18 2018-03-26 Oximetry 99 % 2018-03-26 BMI 40.30 kg/m2 2018-03-26 Blood pressure systolic 161 mmHg 2018-03-26 Blood pressure diastolic 98 mmHg 2018-03-26 MEDICATIONS Medication Instructions Dosage Frequency Start Date End Date Duration Status Vitamin B-12 5000 MCG Active Amoxicillin 875 MG Orally every 12 hrs 1 tablet 12h March, Apr, 14 days Active Metformin & Diet Manage Prod Not-Taking RESULTS No Results PROCEDURES No Known procedures INSTRUCTIONS MEDICATIONS ADMINISTERED No Known Medications MEDICAL (GENERAL) HISTORY Type Description Date Medical History Low iron Medical History Pre Diabetic Surgical History cholecystectomy Surgical History tonsillectomy and adenoidectomy Hospitalization History Sx
--- OUTSIDE RECORDS SUMMARY | 2019-04-29 19:14 | XMS REPORT ---
Author Author SHARI GUADARRAMA Organization [facility] Address [address] [place] [address] Care Team Providers Care Pickers Material Handlers Name Role Phone CHIARASHARI Unavailable PROBLEMS Type Condition ICD9-CM Code [id number] Code Onset Dates Condition Status SNOMED Code Problem Encounter for dental examination Z01.20 Active 061286885 ALLERGIES No Known Allergies SOCIAL HISTORY Never Assessed PLAN OF CARE Activity Details Follow Up 1 Year Reason:Recall VITAL SIGNS Heart Rate 79 bpm 2017-03-06 Blood pressure systolic 137 mmHg 2017-03-06 Blood pressure diastolic 75 mmHg 2017-03-06 MEDICATIONS Medication Instructions Dosage Frequency Start Date End Date Duration Status Vitamin B-12 5000 MCG Active Metformin & Diet Manage Prod Active RESULTS No Results PROCEDURES Procedure Date Ordered Result Body Site COMP ORAL EVALUATION - NEW/EST PT March 06, 2017 INTRAORL-PERIAPICAL 1 FILM [id number] March 06, 2017 TOPICAL FLUORIDE VARNISH March 06, 2017 PROPHYLAXIS - ADULT March 06, 2017 INTRAORL-PERIAPICAL EA ADD FILM March 06, 2017 INTRAORL-PERIAPICAL EA ADD FILM March 06, 2017 PANORAMIC FILM SEE ALSO CODE [id number] March 06, 2017 BITEWINGS - FOUR FILMS March 06, 2017 IMMUNIZATIONS No Known Immunizations MEDICAL (GENERAL) HISTORY Type Description Date Medical History Low iron Medical History Pre Diabetic Surgical History cholecystectomy Surgical History tonsillectomy and adenoidectomy Hospitalization History Sx
--- OUTSIDE RECORDS SUMMARY | 2019-04-29 19:14 | XMS REPORT ---
Author Author JAZZ CASTELLANO [facility] Address [address] [place] [address] Care Team Providers Care Petroleum Refinery Operator Name Role Phone JAZZ CASTELLANO Unavailable PROBLEMS Type Condition ICD9-CM Code [id number]-[id number] Code Onset Dates Condition Status SNOMED Code Problem Acute non-recurrent pansinusitis J01.40 Active 5350512 Problem Elevated blood pressure reading R03.0 Active 92939391 Problem Positive JANIYA (antinuclear antibody) R76.8 Active 684960434 Problem Hypertension, essential I10 Active 56385937 Problem Hyperglycemia R73.9 Active 62777792 Problem Low hemoglobin D64.9 Active 737338605 Problem Right hip pain M25.551 Active 729664532870586 Problem Iron deficiency anemia, unspecified iron deficiency anemia type D50.9 Active 58117103 ALLERGIES No Known Allergies ENCOUNTERS Encounter Location Date Diagnosis [facility] [address] [id number] [place] [phone] May, [facility] [address] [address] [id number] LAKE[place] [phone] May, Positive JANIYA (antinuclear antibody) R76.8 [facility] [address] [id number] LAKE[place] [id number] May, Iron deficiency anemia, unspecified iron deficiency anemia type D50.9 ; Right hip pain M25.551 and Hypertension, essential I10 [facility] [address] [id number] LAKE[place] [id number] Apr, Hematest positive stools R19.5 [facility] [address] [address] [id number] [place] [id number] Apr, Hyperglycemia R73.9 [facility] [address] [id number] [place]KE[place] [id number] Apr, [facility] [address] [id number] LAKE[place] [id number] 13 Apr, 2018 Hyperglycemia R73.[address] [id number] [place] [id number] Apr, Hyperglycemia R73.9 and Low hemoglobin D64.[address] [id number] [place]KE[place] [id number] Apr, Elevated blood pressure reading R03.0 and Seasonal allergic rhinitis, unspecified trigger J30.[address] [id number] [place] [phone] March, Acute non-recurrent pansinusitis J01.40 ; Elevated blood pressure reading R03.0 and BMI 40.0-44.9, adult Z68.41 [facility] [address] [id number] LAKE[place] [id number] Jan, Allergic conjunctivitis of both eyes H10.13 [facility] [address] [place] [id number] March, Encounter for dental examination Z01.20 [facility] [id number] [place] [phone] 02 Dec, 2016 Dysuria R30.0 and Acute cystitis with hematuria N30.01 [facility] [address], [place] [address] Aug, Dysuria R30.0 and Acute cystitis with hematuria N30.01 IMMUNIZATIONS No Known Immunizations SOCIAL HISTORY Never Assessed REASON FOR VISIT pink eye - c/o itch, irritation to bilat eyes x 2 days. David MARTINEZ PLAN OF CARE Activity Details Follow Up prn Reason: VITAL SIGNS Height 65 in 2018-01-23 Weight 242.6 lbs 2018-01-23 Temperature 97.3 degrees Fahrenheit 2018-01-23 Heart Rate 74 bpm 2018-01-23 Respiratory Rate 18 2018-01-23 BMI 40.37 kg/m2 2018-01-23 Blood pressure systolic 157 mmHg 2018-01-23 Blood pressure diastolic 92 mmHg 2018-01-23 MEDICATIONS Medication Instructions Dosage Frequency Start Date End Date Duration Status Metformin & Diet Manage Prod Not-Taking Vitamin B-12 5000 MCG Active RESULTS No Results PROCEDURES No Known procedures INSTRUCTIONS MEDICATIONS ADMINISTERED No Known Medications MEDICAL (GENERAL) HISTORY Type Description Date Medical History Low iron Medical History Pre Diabetic Surgical History cholecystectomy Surgical History tonsillectomy and adenoidectomy Hospitalization History Sx
--- OUTSIDE RECORDS SUMMARY | 2019-04-29 19:14 | XMS REPORT ---
Author Author SONYA KRISHNA Organization [facility] Address [address] [place] [address] Care Team Providers Care Neon Sign Erector Name Role Phone SONYA KRISHNA Unavailable PROBLEMS Type Condition ICD9-CM Code [id number] Code Onset Dates Condition Status SNOMED Code Problem Acute non-recurrent pansinusitis J01.40 Active 6229929 Problem Elevated blood pressure reading R03.0 Active 33194082 Problem Positive JANIYA (antinuclear antibody) R76.8 Active 575277079 Problem Hypertension, essential I10 Active 74836879 Problem Hyperglycemia R73.9 Active 62559493 Problem Low hemoglobin D64.9 Active 275834204 Problem Right hip pain M25.551 Active 803359252445284 Problem Iron deficiency anemia, unspecified iron deficiency anemia type D50.9 Active 24025532 ALLERGIES No Information ENCOUNTERS Encounter Location Date Diagnosis [facility] [address] [id number] [place] [phone] May, [facility] [address] [id number][place] [phone] May, Positive JANIYA (antinuclear antibody) R76.8 [facility] [address] [id number][place] [id number] May, Iron deficiency anemia, unspecified iron deficiency anemia type D50.9 ; Right hip pain M25.551 and Hypertension, essential I10 [facility] [address] [id number] [place] [id number] Apr, Hematest positive stools R19.5 [facility] [address] [id number] [place] [id number] Apr, Hyperglycemia R73.9 [facility] [address] [id number][place] [id number] Apr, [facility] [address] [id number][place] [id number] Apr, Hyperglycemia R73.[address] [id number], [place] [id number] Apr, Hyperglycemia R73.9 and Low hemoglobin D64.[address] [id number], [place] [id number] Apr, Elevated blood pressure reading R03.0 and Seasonal allergic rhinitis, unspecified trigger J30.[address] [id number], [place] [id number] March, Acute non-recurrent pansinusitis J01.40 ; Elevated blood pressure reading R03.0 and BMI 40.0-44.9, adult Z68.[address] [id number], [place] [id number] Jan, Allergic conjunctivitis of both eyes H10.13 [facility] [address] [place] [id number] March, Encounter for dental examination Z01.20 [facility] [id number] [place] [phone] 02 Dec, 2016 Dysuria R30.0 and Acute cystitis with hematuria N30.01 [facility] [address] [place] [address] Aug, Dysuria R30.0 and Acute cystitis with hematuria N30.01 IMMUNIZATIONS No Known Immunizations SOCIAL HISTORY Never Assessed REASON FOR VISIT Test results PLAN OF CARE VITAL SIGNS MEDICATIONS Medication Instructions Dosage Frequency Start Date End Date Duration Status Ferrous Sulfate 325 (65 Fe) MG Orally twice a day 1 tablet 12h 18 Apr, 2018 30 day(s) Active RESULTS No Results PROCEDURES No Known procedures INSTRUCTIONS MEDICATIONS ADMINISTERED No Known Medications MEDICAL (GENERAL) HISTORY Type Description Date Medical History Low iron Medical History Pre Diabetic Surgical History cholecystectomy Surgical History tonsillectomy and adenoidectomy Hospitalization History Sx
--- OUTSIDE RECORDS SUMMARY | 2019-04-29 19:14 | XMS REPORT ---
Author Author ADRI TORREZ Organization [facility] Address [address] [place] [address] Care Team Providers Care Petroleum Products Sales Representative Name Role Phone ADRI TORREZ Unavailable PROBLEMS Type Condition ICD9-CM Code PPN94-JI Code Onset Dates Condition Status SNOMED Code Problem Encounter for dental examination Z01.20 Active 849588417 ALLERGIES Substance Reaction Event Type Date Status N.K.D.A. Unknown Non Drug Allergy Dec, Unknown SOCIAL HISTORY No smoking Hx information available PLAN OF CARE Activity Details Follow Up prn Reason: VITAL SIGNS Height 65 in 2016-12-06 Weight 258.4 lbs 2016-12-06 Temperature 98.0 degrees Fahrenheit 2016-12-06 Heart Rate 80 bpm 2016-12-06 Respiratory Rate 18 2016-12-06 BMI 43.00 kg/m2 2016-12-06 Blood pressure systolic 160 mmHg 2016-12-06 Blood pressure diastolic 104 mmHg 2016-12-06 MEDICATIONS Medication Instructions Dosage Frequency Start Date End Date Duration Status Vitamin B-12 5000 MCG Active Macrobid 100 MG Orally every 12 hrs 1 capsule with food 12h Dec, Dec, 7 day(s) Active RESULTS Name Result Date Reference Range UA LONG DIP (IN HOUSE) 2016-12-06 Lot # [id number] Exp date 2017-12-04 Clarity cloudy Color yellow Odor none GLU negative EMERSON negative KET negative SG >=1.030 BLO trace-intact pH 6.5 Protein negative URO 0.2 NIT negative HEVER trace Lot # [id number] Exp date 2017-12 CULTURE, URINE 2016-12-06 Urine Culture, Routine Final report Result 1 No growth PROCEDURES Procedure Date Ordered Related Diagnosis Body Site URINALYSIS, AUTO, W/O SCOPE Dec 06, 2016 URINE CULTURE/COLONY COUNT Dec 06, 2016 Office Visit, Est Pt., Level 3 Dec 06, 2016 IMMUNIZATIONS No Known Immunizations
--- OUTSIDE RECORDS SUMMARY | 2019-04-29 19:14 | XMS REPORT ---
Author Author SONYA KRISHNA Organization [facility] Address [address] [place] [address] Care Team Providers Care Yarn Man Name Role Phone SONYA KRISHNA Unavailable PROBLEMS Type Condition ICD9-CM Code LVQ33-IE Code Onset Dates Condition Status SNOMED Code Problem Acute non-recurrent pansinusitis J01.40 Active 3989362 Problem Elevated blood pressure reading R03.0 Active 36804806 Problem Positive JANIYA (antinuclear antibody) R76.8 Active 496444864 Problem Hypertension, essential I10 Active 06820935 Problem Hyperglycemia R73.9 Active 16840327 Problem Low hemoglobin D64.9 Active 857901510 Problem Right hip pain M25.551 Active 615295613573187 Problem Iron deficiency anemia, unspecified iron deficiency anemia type D50.9 Active 37999306 ALLERGIES No Known Allergies ENCOUNTERS Encounter Location Date Diagnosis [facility] [address] [id number] [place] [id number] May, [facility] [address] [id number] [place] [id number] May, Positive JANIYA (antinuclear antibody) R76.8 [facility] [address] [id number] [place] [id number] May, Iron deficiency anemia, unspecified iron deficiency anemia type D50.9 ; Right hip pain M25.551 and Hypertension, essential I10 [facility] [address] [id number] [place] [id number] Apr, Hematest positive stools R19.5 [facility] [address] [id number] [place] [phone] Apr, Hyperglycemia R73.9 [facility] [address] [id number] [place] [id number] Apr, [facility] [address] [facility] [address] [id number] [place] [id number] 13 Apr, 2018 Hyperglycemia R73.[address] [id number] [place] [id number] 11 Apr, 2018 Hyperglycemia R73.9 and Low hemoglobin D64.[address] [id number] [place] [id number] Apr, Elevated blood pressure reading R03.0 and Seasonal allergic rhinitis, unspecified trigger J30.[address] [id number] [place] [id number] March, Acute non-recurrent pansinusitis J01.40 ; Elevated blood pressure reading R03.0 and BMI 40.0-44.9, adult Z68.[address] [id number] [place] [id number] Jan, Allergic conjunctivitis of both eyes H10.13 [facility] [address] [place] [id number] March, Encounter for dental examination Z01.20 [facility] [id number] [place] [phone] 02 Dec, 2016 Dysuria R30.0 and Acute cystitis with hematuria N30.01 [facility] [id number] [place] [phone] Aug, Dysuria R30.0 and Acute cystitis with hematuria N30.01 IMMUNIZATIONS No Known Immunizations SOCIAL HISTORY Never Assessed REASON FOR VISIT Establish Care-having problems with blood pressure and sinus. Erica medley PLAN OF CARE Activity Details Follow Up 6 Weeks Reason:b/p eval VITAL SIGNS Height 66.0 in 2018-04-10 Weight 246.6 lbs 2018-04-10 Temperature 97.0 degrees Fahrenheit 2018-04-10 Heart Rate 80 bpm 2018-04-10 Respiratory Rate 18 2018-04-10 BMI 39.80 kg/m2 2018-04-10 Blood pressure systolic 140 mmHg 2018-04-10 Blood pressure diastolic 82 mmHg 2018-04-10 MEDICATIONS Medication Instructions Dosage Frequency Start Date End Date Duration Status Cetirizine HCl 10 mg Orally Once a day 1 tablet 24h Apr, Oct, 90 days Active Vitamin B-12 5000 MCG Active Metformin & Diet Manage Prod Not-Taking RESULTS No Results PROCEDURES Procedure Date Ordered Result Body Site MICROALBUMIN, QUANTITATIVE April 10, 2018 MICROALBUMIN, SEMIQUANT April 10, 2018 LIPID PANEL April 10, 2018 VENIPUNCT, ROUTINE* April 10, 2018 ASSAY OF URINE CREATININE April 10, 2018 ASSAY THYROID STIM HORMONE April 10, 2018 COMPREHEN METABOLIC PANEL April 10, 2018 COMPLETE CBC W/AUTO DIFF WBC April 10, 2018 ASSAY OF FREE THYROXINE April 10, 2018 INSTRUCTIONS MEDICATIONS ADMINISTERED No Known Medications MEDICAL (GENERAL) HISTORY Type Description Date Medical History Low iron Medical History Pre Diabetic Surgical History cholecystectomy Surgical History tonsillectomy and adenoidectomy Hospitalization History Sx
--- OUTSIDE RECORDS SUMMARY | 2019-04-29 19:14 | XMS REPORT ---
Author Author SONYA KRISHNA Organization [facility] Address [address] [place] [address] Care Team Providers Care Electron Tube Assembler Name Role Phone SONYA KRISHNA Unavailable PROBLEMS Type Condition ICD9-CM Code VEP37-BR Code Onset Dates Condition Status SNOMED Code Problem Acute non-recurrent pansinusitis J01.40 Active 4119410 Problem Elevated blood pressure reading R03.0 Active 76444484 Problem Positive JANIYA (antinuclear antibody) R76.8 Active 045274321 Problem Hypertension, essential I10 Active 91431578 Problem Hyperglycemia R73.9 Active 26754729 Problem Low hemoglobin D64.9 Active 819975447 Problem Right hip pain M25.551 Active 776955798560976 Problem Iron deficiency anemia, unspecified iron deficiency anemia type D50.9 Active 97440804 ALLERGIES No Information ENCOUNTERS Encounter Location Date Diagnosis [facility] [address] [id number] [place] [phone] May, [facility] [address] [address] [id number], [place] [id number] May, Positive JANIYA (antinuclear antibody) R76.8 [facility] [address] [id number], [place] [id number] May, Iron deficiency anemia, unspecified iron deficiency anemia type D50.9 ; Right hip pain M25.551 and Hypertension, essential I10 [facility] [address] [address] [id number] [place] [id number] Apr, Hematest positive stools R19.5 [facility] [address] [address] [id number] [place] [phone] Apr, Hyperglycemia R73.9 [facility] [address] [address] [id number][place] [id number] Apr, [facility] [address] [id number], [place] [id number] Apr, Hyperglycemia R73.[address] [id number], [place] [id number] Apr, Hyperglycemia R73.9 and Low hemoglobin D64.[address] [id number], [place] [id number] Apr, Elevated blood pressure reading R03.0 and Seasonal allergic rhinitis, unspecified trigger J30.[address] [id number], [place] [phone] March, Acute non-recurrent pansinusitis J01.40 ; Elevated blood pressure reading R03.0 and BMI 40.0-44.9, adult Z68.[address] [id number], [place] [id number] Jan, Allergic conjunctivitis of both eyes H10.13 [facility] [address] [place] [id number] March, Encounter for dental examination Z01.20 [facility] [id number] [place] [phone] 02 Dec, 2016 Dysuria R30.0 and Acute cystitis with hematuria N30.01 [facility] [address] [place] [phone] Aug, Dysuria R30.0 and Acute cystitis with [...]
--- OUTSIDE RECORDS SUMMARY | 2019-04-29 19:14 | XMS REPORT | Continuity of Care Document ---
Author Organization Unknown Address Unknown Allergies There is no data. Medications There is no data. Problems There is no data. Procedures There is no data. Results Test Result Range PLATELET ESTIMATION - 04/10/18 09:44 CBC MORPHOLOGY - 04/10/18 09:44 CBC MORPHOLOGY NORMAL EXTRA URINE SPECIMEN - 04/10/18 09:44 EXTRA URINE SPECIMEN NRG COMMENT NRG CBC - 04/16/18 10:01 WHITE BLOOD CELL COUNT 6.3 Thousand/uL 3.8-10.8 RED BLOOD CELL COUNT 4.63 Million/uL 3.80-5.10 HEMOGLOBIN 8.5 g/dL 11.7-15.5 HEMATOCRIT 31.3 % 35.0-45.0 MCV 67.6 fL 80.0-100.0 MCH 18.4 pg 27.0-33.0 MCHC 27.2 g/dL 32.0-36.0 RDW 18.1 % 11.0-15.0 PLATELET COUNT 498 Thousand/uL 140-400 MPV 9.9 fL 7.5-12.5 ABSOLUTE NEUTROPHILS 3875 cells/uL 6926-1749 ABSOLUTE LYMPHOCYTES 1676 cells/uL 850-3900 ABSOLUTE MONOCYTES 573 cells/uL 200-950 ABSOLUTE EOSINOPHILS 139 cells/uL 15-500 ABSOLUTE BASOPHILS 38 cells/uL 0-200 NEUTROPHILS 61.5 % NRG LYMPHOCYTES 26.6 % NRG MONOCYTES 9.1 % NRG EOSINOPHILS 2.2 % NRG BASOPHILS 0.6 % NRG A1C - 04/16/18 10:01 HEMOGLOBIN A1c 5.3 % of total Hgb <5.7 PLATELET ESTIMATION - 04/16/18 10:01 PLATELET ESTIMATION INCREASED ADEQUATE CBC MORPHOLOGY - 04/16/18 10:01 CBC MORPHOLOGY NORMAL VITAMIN B12/FOLATE, SERUM PANEL - 04/16/18 10:01 VITAMIN B12 894 pg/mL 200-1100 FOLATE, SERUM 9.6 ng/mL NRG ANTINUCLEAR ANTIBODIES TITER AND PATTERN - 05/06/18 15:43 JANIYA PATTERN CENTROMERE NRG JANIYA TITER 1:640 titer NRG Encounters ACCT No. Visit Date/Time Discharge Status Pt. Type Provider Facility Loc./Unit Complaint [id number] 04/27/2019 10:00:00 [facility] [id number] 05/06/2018 15:00:00 Document Registration [id number] 04/16/2018 10:00:00 Document Registration [id number] 04/10/2018 08:40:00 Document Registration
[2019-04-29 19:22] LABS: BACTERIA,URINE FEW /HPF; SQUAMOUS EPITHELIAL CELL,UR 0-2 /HPF
[2019-04-29] MEDS ORDERED: NS IV 1000 ML 1,000 ML IV ONE (19:29)
[2019-04-29 20:39] VITALS: BP 154/87
== END 2019-04-29 20:39 | disposition home or self-care (01) ==
LOC: ER 17:47
DX: D64.9 Anemia, unspecified (principal); R91.1 Solitary pulmonary nodule; R07.9 Chest pain, unspecified; R06.00 Dyspnea, unspecified; G47.33 Obstructive sleep apnea (adult) (pediatric); I27.20 Pulmonary hypertension, unspecified; I10 Essential (primary) hypertension; K21.9 Gastro-esophageal reflux disease without esophagitis; E11.9 Type 2 diabetes mellitus without complications; Z90.89 Acquired absence of other organs; Z90.710 Acquired absence of both cervix and uterus
CPT/HCPCS: 36415; 71046; 80053; 81000; 83735; 83874; 84484; 85025; 85379; 85610; 85730; 87077; 87088; 93005; 93041; 96360

== ENCOUNTER → 2021-11-06 | Outpatient (CLI) | payer OTHER ==
[~2021-11-06] VITALS: Ht 65 cm; Wt 118.2 kg
[~2021-11-06] MED LIST: ACETAMINOPHEN 500 MG TAB (TYLENOL) PO PRN; DICL100G18 TP; EPINEPHrine INJECTION 1 MG/ML AMP IM PRN; LISI20TA26 PO; ONDANSETRON 4 MG/2 ML (SDV) Z0FRAN IV PRN; SOTROVIMAB 500 MG/NS 100 ML IVPB IV ONE; diphenhydrAMINE 50 MG/ML INJ (BENADRYL) IV PRN
[2021-11-06 11:35] VITALS: BP 146/78
[2021-11-06 12:09] VITALS: BP 135/72
== END ==
LOC: INFUSION 11:13
PROVIDERS: ATTEND Nurse Practitioner Family
DX: U07.1 COVID-19 (principal)